=== PATIENT | female | born 1940 | race African-American/Black ===

== ENCOUNTER → 2024-04-06 11:38 | Outpatient (REF) | payer MEDICARE, SELFPAY | LOC: HWWDC 11:38 | PROVIDERS: ATTENDING PHYSICIAN Family Medicine; FAMILY PHYSICIAN Family Medicine | DX: Z12.31 Encounter for screening mammogram for malignant neoplasm of breast (principal) | CPT/HCPCS: 77063; 77067 ==

== ENCOUNTER → 2024-11-28 09:45 | Outpatient (REF) | payer MEDICARE, SELFPAY | LOC: HWRAD 09:45 | PROVIDERS: ATTENDING PHYSICIAN Family Medicine | DX: I65.23 Occlusion and stenosis of bilateral carotid arteries (principal) | CPT/HCPCS: 93880 ==

== ENCOUNTER → 2025-04-09 10:18 | Outpatient (REF) | payer MEDICARE, SELFPAY | LOC: HWWDC 10:18 | PROVIDERS: ATTENDING PHYSICIAN Family Medicine | DX: Z12.31 Encounter for screening mammogram for malignant neoplasm of breast (principal) | CPT/HCPCS: 77063; 77067 ==